=== PATIENT | male | born 2005 | race African-American/Black ===

== ENCOUNTER 2024-02-16 00:38 | Emergency (ER) | payer BC ==
[2024-02-16 00:44] VITALS: RESP 22
--- NOTE | 2024-02-16 00:52 | ED ---
General Adult HPI - General Chief complaint: Extremity Injury, Lower Stated complaint: Left foot toe injruy Time Seen by Provider: 02/16/24 00:46 Source: patient, RN notes reviewed, old records reviewed Mode of arrival: ambulatory Limitations: no limitations - History of Present Illness Initial comments: 18-year-old male with pain to the left second toe after doing a back flip. No other injury. Patient had noted deformity of the toe. No bleeding. - Related Data Allergies Allergy/AdvReac Type Severity Reaction Status Date / Time No Known Allergies Allergy Verified 02/16/24 00:44 Review of Systems ROS Statement: Those systems with pertinent positive or pertinent negative responses have been documented in the HPI. ROS Other: All systems not noted in ROS Statement are negative. Past Medical History Past Medical History: No Reported History Past Surgical History: No Surgical Hx Reported Past Psychological History: Anxiety, Depression Smoking Status: Never smoker Past Alcohol Use History: Occasional Past Drug Use History: None Reported General Exam Limitations: no limitations General appearance: alert, in no apparent distress Head exam: Present: atraumatic, normocephalic Eye exam: Present: normal appearance, PERRL ENT exam: Present: normal exam Neck exam: Present: normal inspection Respiratory exam: Present: normal lung sounds bilaterally. Absent: respiratory distress, wheezes Cardiovascular Exam: Present: regular rate, normal rhythm Extremities exam: Present: other (Shortening and angulation of the left second digit, left foot) Course Vital Signs 02/16/24 00:41 Temperature 98.1 F Pulse Rate 94 Respiratory 22 Rate Blood Pressure 122/88 O2 Sat by Pulse 100 Oximetry Procedures - Orthopedic Joint Reduction Joint #1 Consent Obtained: verbal consent Side: left Joint Reduction Location: toe Analgesia: none Shoulder Technique Used (if applicable): traction/counter-traction Post-Reduction Neuro Exam: intact Post-Reduction Vascular Exam: intact Post Reduction X-Ray Obtained: No Post Reduction X-Ray Results: reduced Splint Applied: No Patient Tolerated Procedure: well Medical Decision Making - Medical Decision Making Was pt. sent in by a medical professional or institution (, PA, CONSUMER [employer]ER, urgent care, hospital, or longterm...) When possible be specific @ -No Did you speak to anyone other than the patient for history (EMS, parent, family, police, friend...)? What history was obtained from this source @ -No Did you review nursing and triage notes (agree or disagree)? Why? @ -I reviewed and agree with nursing and triage notes Were old charts reviewed (outside hosp., previous admission, EMS record, old EKG, old radiological studies, urgent care reports/EKG's, longterm records)? Report findings @ -No old charts were reviewed Differential Musculoskeletal Muscular strain, contusion, ligament sprain, fracture, arthritis, septic arthritis, bursitis, cellulitis, muscle spasm, nerve compression, DVT, arterial occlusion, herpes zoster, electrolyte abnormality, tumor.... This is not meant to be in all inclusive list EKG interpreted by me (3pts min.). @ -As above X-rays interpreted by me (1pt min.). @X-ray of the toes on the left foot: CT interpreted by me (1pt min.). @ -None done U/S interpreted by me (1pt. min.). @ -None done What testing was considered but not performed or refused? (CT, X-rays, U/S, labs)? Why? @ -None What meds were considered but not given or refused? Why? @ -None Did you discuss the management of the patient with other professionals (professionals i.e. , PA, CONSUMER [employer]ER, lab, RT, psych nurse, nursing home social worker, confectionery laboratory manager, teacher, chief security and safety officer, immigration case worker)? Give summary @ -No Was smoking cessation discussed for >3mins.? @ -No Was critical care preformed (if so, how long)? @ -No Were there social determinants of health that impacted care today? How? (Homelessness, low income, unemployed, alcoholism, drug addiction, transportation, low edu. Level, literacy, decrease access to med. care, [facility], rehab)? @ -No Was there de-escalation of care discussed even if they declined (Discuss DNR or withdrawal of care, Hospice)? DNR status @ -No What co-morbidities impacted this encounter? (DM, HTN, Smoking, COPD, CAD, Cancer, CVA, ARF, Chemo, Hep., AIDS, mental health diagnosis, sleep apnea, morbid obesity)? @ -None Was patient admitted / discharged? Hospital course, mention meds given and route, prescriptions, significant lab abnormalities, going to OR and other pertinent info. @ -[Second digit on the left foot dislocation, easily reduced, stable for discharge Undiagnosed new problem with uncertain prognosis? @ -No Drug Therapy requiring intensive monitoring for toxicity (Heparin, Nitro, Insulin, Cardizem)? @ -No Were any procedures done? @ -[Yes, joint reduction Diagnosis/symptom? @ -Second toe dislocation left foot Acute, or Chronic, or Acute on Chronic? @ -[default Uncomplicated (without systemic symptoms) or Complicated (systemic symptoms)? @ -Default Side effects of treatment? @ -No Exacerbation, Progression, or Severe Exacerbation? @ -No Poses a threat to life or bodily function? How? (Chest pain, [place], [place], pneumonia, PE, COPD, DKA, ARF, appy, cholecystitis, CVA, Diverticulitis, Homicidal, Suicidal, threat to staff... and all critical care pts) @ -No Disposition Clinical Impression: Toe joint dislocation Disposition: HOME SELF-CARE Condition: Good Instructions (If sedation given, give patient instructions): Finger Dislocation (ED) Is patient prescribed a controlled substance at d/c from ED?: No Referrals: Ana Rosa Hackett NPC [Primary Care Provider] - 1-2 days Time of Disposition: 01:04
[2024-02-16 01:38] VITALS: BP 124/86; PULSE 79; TEMP 98.2
--- NOTE | 2024-02-16 02:24 | XR ---
EXAM: XR Left Toes, 2 or More Views CLINICAL HISTORY: XR Reason: pain TECHNIQUE: Frontal, lateral and oblique views of the toes of the left foot. COMPARISON: No relevant prior studies available. FINDINGS: Bones/joints: There is dorsal dislocation of the proximal interphalangeal joint of the second digit, left foot. No acute fracture. Soft tissues: Unremarkable. No radiopaque foreign body. IMPRESSION: There is dorsal dislocation of the proximal interphalangeal joint of the second digit, left foot.
== END 2024-02-16 02:48 | disposition home or self-care (01) ==
LOC: EC 00:38
CPT/HCPCS: 23650; 99283